=== PATIENT | female | born 1975 | race Caucasian/White ===

== ENCOUNTER 2023-02-05 13:46 | Emergency (ER) | payer MEDICARE, MEDICAID, SELFPAY ==
[2023-02-05 13:47] VITALS: BP 169/79; PULSE 90; RESP 24; TEMP 36.8; O2SAT 95
--- NOTE | 2023-02-05 13:48 | ECG_ITS ---
[facility] Test Date: 2023-02-05 Pat Name: Martha Pedroza Department: Room: Gender: Female Director Of Research: : 1975 Requested By: Star Yan Order Number: [id number] Nicolas MD: Analilia Dahl M.D. Measurements Intervals [place] Rate: 77 P: 43 AL: 151 QRS: 54 QRSD: 95 T: 11 QT: 369 QTc: 419 Interpretive Statements SINUS RHYTHM No previous ECG available for comparison Electronically Signed On 02-05-2023 17:44:38 CDT by Analilia Dahl M.D. [id number]
--- NOTE | 2023-02-05 13:48 | XR_ITS ---
WS: [id number] Exam: XR chest 1V portable [id number] Date/Time of Exam: 02/05/2023 1:48 PM Reason For Exam: dyspnea/cough No priors. Diffuse interstitial infiltrates noted in both lungs. Increased pulmonary vascularity. Cardiomediasti nal silhouette is unremarkable. Blunted RIGHT costophrenic angle may represent pleural thickening or small pleural effusion. IMPRESSION: 1. Diffuse interstitial infiltrates throughout both lungs. This could represent chronic change, inter stitial pneumonia or interstitial pulmonary edema. There is likely some pulmonary vascular engorgemen t. 2. Blunted RIGHT costophrenic angle that may represent small pleural effusion versus pleural thickeni ng.
[2023-02-05 14:15] LABS: Basophils # 0.2 10^3/uL (0.0-0.1); Basophils % 1.8 %; Eosinophils # 0.3 10^3/uL (0.0-0.8); Eosinophils % 3.8 %; Hematocrit 46.6 % (36-47); Lymphocytes # 1.2 10^3/uL (0.8-4.8); Lymphocytes % 14.8 %; Mean Corpuscular HGB Conc 32.8 g/dL (30-55); Mean Corpuscular Hemoglobin 32.6 pg (27-33); Mean Corpuscular Volume 99.4 fl (85-98); Mean Platelet Volume 10.8 fL (7.4-10.4); Monocytes # 0.6 10^3/uL (0.2-0.9); Monocytes % 7.4 %; Neutrophils # 5.79 10^3/uL (1.8-7.7); Neutrophils % 70.6 %; Nucleated Red Blood Cells % 0 %; Platelet Count 186 10^3/cmm (157-399); Red Blood Count 4.69 10^6/uL (3.85-5.65); Red Cell Distribution Width 15.4 % (12.1-15.1)
--- NOTE | 2023-02-05 14:22 | ED_ITS ---
HPI - SOB/Dyspnea General: Chief Complaint: Shortness of Breath/Dyspnea Stated Complaint: SOB Time Seen by Provider: 02/05/23 13:47 Source: patient and other (Caregiver) Mode of arrival: EMS History of Present Illness: HPI Narrative: 47-year-old female with a history of Down syndrome. She has been evaluated recently and they have been concerned she has sleep apnea results has been cyanotic at times at night because her mental handicap she has not been compliant with evaluation for sleep apnea. She was seen over the weekend another emergency room and they evaluated her and discharged her home. She was seen after primary care doctor's office today they had read her sats is abnormal and could called an ambulance for her to be brought to the emergency room. On arrival here her oxygen sats are with 100% on room air they are in the mid 90s in route with EMS. The clinic had stated they had recorded oxygen sats around 83 at the time she was seen there. No reports of chest pain. MD elicited complaint: shortness of breath and cough Onset (ago): unknown Timing: constant Severity: moderate Exacerbating factors: lying flat and other (Sleeping) Relieving factors: upright position Associated symptoms: Reports orthopnea; Deny abdominal pain, chest congestion, chest pain, cough, diaphoresis, di zziness, extremity pain, fever(s), hemoptysis, myalgias, nausea, paresthesias, polydipsia, polyuria, rash, sense of impending doom, syncope or vomiting Review of Systems General: Reports: Other (ROS via caregiver based on the best of her knowledge observing pt) Const: Denies: fever(s) or diaphoresis Card: Reports: orthopnea; Denies: chest pain or syncope Resp: Reports: dyspnea; Denies: hemoptysis or chest congestion GI: Denies: abdominal pain, nausea or vomiting : Denies: dysuria, urinary frequency or urinary urgency Musc: Denies: neck pain, back pain or extremity pain Skin/Breast: Denies: rash Neuro: Denies: dizziness Endo: Denies: polyuria or polydipsia Physical Exam Const: COMMON NORMALS: no acute distress GENERAL APPEARANCE: cooperative and comfortable NUTRITIONAL APPEARANCE: obese centrally obese ORIENTATION/CONSCIOUSNESS: Yes awake HENMT: COMMON NORMALS: normocephalic, atraumatic and hearing grossly normal bilaterally HEAD & SCALP: normocephalic and atraumatic Resp: COMMON NORMALS: normal respiratory effort, No retractions, No use of accessory muscles and clear to auscultation bilaterally AUSCULTATION: clear to auscultation bilaterally Cardio: COMMON NORMALS: regular rate, regular rhythm and No murmurs present (Cardio) RATE: regular rate RHYTHM: regular rhythm GI: COMMON NORMALS: Soft to palpation and No hepatosplenomegaly present AUSCULTATION: Yes normoactive bowel sounds PALPATION: Yes Soft to palpation, No Tenderness to palpation present (GI), No Guarding due to palpation present (GI) and Yes No hepatosplenomegaly present Extremity: COMMON NORMALS: normal to inspection, capillary refill normal, no clubbing, cyanosis or edema, no calf tenderness and no pedal edema Skin: COMMON NORMALS: no rashes or lesions noted GENERAL SKIN EXAM: no rashes or lesions noted Course Vital Signs: Vital signs: Vital Signs Temperature 98.2 F 02/05/23 13:47 Pulse Rate 90 02/05/23 13:47 Respiratory Rate 24 H 02/05/23 13:47 Blood Pressure 169/79 02/05/23 13:47 Pulse Oximetry 95 02/05/23 15:29 Oxygen Delivery Me thod Room Air 02/05/23 13:47 MDM - SOB/Dyspnea Medical Decision Making Patient has no acute findings and her oxygen sat remains normal. She does desat when she dozes off sleeping low 90s when she is in an upright position. At this point no acute findings. There is no evidence of pneumonia. We will discharge patient home we did get a chest x-ray which showed some chronic interstitial findings I think some of that is due to her body habitus. Additionally we did a home O2 eval and ambulate her her sats remain normal she did not qualify for oxygen will refer her to pulmonology for further work-up and evaluation. Medical Records I reviewed the patient's medical records. Lab Data I reviewed the patient's lab results. 02/05/23 14:08 02/05/23 14:08 Labs/Radiology: Laboratory Results WBC 8.20 10^3/uL (3.29-11.43) 02/05/23 14:08 RBC 4.69 10^6/uL (3.85-5.65) 02/05/23 14:08 Hgb 15.30 g/dL (11.27-16.99) 02/05/23 14:08 Hct 46.6 % (36-47) 02/05/23 14:08 MCV 99.4 fl (85-98) H 02/05/23 14:08 MCH 32.6 pg (27-33) 02/05/23 14:08 MCHC 32.8 g/dL (30-55) 02/05/23 14:08 RDW 15.4 % (12.1-15.1) H 02/05/23 14:08 Plt Count 186 10^3/cmm (157-399) 02/05/23 14:08 MPV 10.8 fL (7.4-10.4) H 02/05/23 14:08 Neut % (Auto) 70.6 % 02/05/23 14:08 Lymph % (Auto) 14.8 % 02/05/23 14:08 Norton % (Auto) 7.4 % 02/05/23 14:08 Eos % (Auto) 3.8 % 02/05/23 14:08 Baso % (Auto) 1.8 % 02/05/23 14:08 Neut # (Auto) 5.79 10^3/uL (1.8-7.7) 02/05/23 14:08 Lymph # (Auto) 1.2 10^3/uL (0.8-4.8) 02/05/23 14:08 Norton # (Auto) 0.6 10^3/uL (0.2-0.9) 02/05/23 14:08 Eos # (Auto) 0.3 10^3/uL (0.0-0.8) 02/05/23 14:08 Baso # (Auto) 0.2 10^3/uL (0.0-0.1) H 02/05/23 14:08 Nucleated RBC % (auto) 0 % 02/05/23 14:08 Nucleated RBCs # 0.0 /100WBC 02/05/23 14:08 Specimen Type Cancelled 02/05/23 15:28 Specimen Type Venous 02/05/23 15:28 Sample Site Cancelled 02/05/23 15:28 Sample Site Not Reportable 02/05/23 15:28 O2 Sat Pulse Oximetry Cancelled 02/05/23 15:28 Jaiden Test Cancelled 02/05/23 15:28 Jaiden Test Na 02/05/23 15:28 VBG pH 7.34 (7.32-7.42) 02/05/23 15:28 VBG pH Cancelled 02/05/23 15:28 VBG pCO2 59.9 mmHg (41-51) H 02/05/23 15:28 VBG pCO2 Cancelled 02/05/23 15:28 VBG pO2 22.1 mmHg (25-40) L 02/05/23 15:28 VBG pO2 Cancelled 02/05/23 15:28 VBG HCO3 32.4 mmol/L (24-28) H 02/05/23 15:28 VBG HCO3 Cancelled 02/05/23 15:28 VBG Base Excess 4.5 mmol/L (-3.0-3.0) H 02/05/23 15:28 VBG Base Excess Cancelled 02/05/23 15:28 VBG Hematocrit 49.1 % (37-47) H 02/05/23 15:28 VBG Hematocrit Cancelled 02/05/23 15:28 Respiration Rate Cancelled 02/05/23 15:28 O2 Delivery Device Cancelled 02/05/23 15:28 O2 Delivery Device Not Reportable 02/05/23 15:28 O2 Liters/Min Cancelled 02/05/23 15:28 SIMV Cancelled 02/05/23 15:28 Vent Mode Cancelled 02/05/23 15:28 Mechanical Rate Cancelled 02/05/23 15:28 Spontaneous Rate Cancelled 02/05/23 15:28 FiO2 Cancelled 02/05/23 15:28 Tidal Volume Cancelled 02/05/23 15:28 PEEP Cancelled 02/05/23 15:28 Pressure Support Cancelled 02/05/23 15:28 Pressure Control Cancelled 02/05/23 15:28 CPAP Cancelled 02/05/23 15:28 Mode BiPAP Cancelled 02/05/23 15:28 Specimen Drawn By Cancelled 02/05/23 15:28 Retail Greeting Card Merchandiser ID Cancelled 02/05/23 15:28 Retail Greeting Card Merchandiser ID Rc 02/05/23 15:28 Crit Value Read Back Cancelled 02/05/23 15:28 Blood Gas Notified Time Cancelled 02/05/23 15:28 Sodium 140 mmol/L (136-145) 02/05/23 14:08 Potassium 4.4 mmol/L (3.5-5.1) 02/05/23 14:08 Chloride 101 mmol/L (98-107) 02/05/23 14:08 Carbon Dioxide 31 mmol/L (22-29) H 02/05/23 14:08 Anion Gap 12.4 (5-19) 02/05/23 14:08 BUN 14 mg/dL (6-20) 02/05/23 14:08 Creatinine 0.9 mg/dL (0.5-0.9) 02/05/23 14:08 GFR Calculation 66.8 mL/min (90-130) L 02/05/23 14:08 Glucose 102 mg/dL (65-115) 02/05/23 14:08 Calculated Osmolality 291 mOsm/kg (285-295) 02/05/23 14:08 Calcium 9.1 mg/dL (8.5-10.5) 02/05/23 14:08 Total Bilirubin 0.4 mg/dL (0.15-1.2) 02/05/23 14:08 AST 12 U/L (0-32) 02/05/23 14:08 ALT 14 U/L (0-33) 02/05/23 14:08 Alkaline Phosphatase 103 U/L (35-105) 02/05/23 14:08 NT-Pro-B Natriuret Pep 118 pg/mL (0-125) 02/05/23 14:08 Total Protein 7.2 g/dL (6.6-8.7) 02/05/23 14:08 Albumin 3.8 g/dL (3.5-5.2) 02/05/23 14:08 Globulin 3.4 g/dL (1.3-4.6) 02/05/23 14:08 All radiology interpretation(s) finalized by discharge Discharge Plan Discharge Patient Disposition: Home Clinical Impression: Apnea, sleep, Obesity hypoventilation syndrome Condition: Stable Prescriptions: No Action loperamide 2 mg capsule See Rx Instructions .ROUTE .COMPLEX Rx Instructions: Take 1 capsule by mouth every 3 hours as needed for diarrhea/loose stools, Max of 8 mg per 24 hours. cetirizine 10 mg Tablet 10 mg PO DAILY clobetasol 0.05 % cream 1 applic TOPICAL BID Rx Instructions: DO NOT USE ON FACE, GROIN OR AXILLAE potassium chloride 10 mEq tablet extended release 10 meq PO QAM triamcinolone acetonide 0.1 % cream See Rx Instructions .ROUTE .COMPLEX Rx Instructions: Apply to psoriatic areas topically all over body (thin layer to the affected area) 2 times daily including intertriginous as needed for control levothyroxine 100 mcg tablet 100 mcg PO QAM alprazolam 0.25 mg tablet 0.25 mg PO BID ferrous sulfate 325 mg (65 mg iron) Tablet 325 mg PO QAM Debrox 6.5 % Drops 5 drp OTIC (EAR) Q12H sertraline 25 mg tablet 25 mg PO QAM omeprazole 20 mg capsule,delayed release(DR/EC) 20 mg PO BID gentamicin 0.1 % cream See Rx Instructions .ROUTE .COMPLEX Rx Instructions: 1 applic topically to open areas of the feet once daily. furosemide 20 mg tablet 20 mg PO QAM Nyamyc 100,000 unit/gram powder 1 applic TOPICAL BID Miralax 17 gram/dose Powder See Rx Instructions .ROUTE .COMPLEX Rx Instructions: Mix 17 g (1 capful) in 8 ounces of liquid and drink entire liquid daily at 8 am. Hold if loose stools. clotrimazole 1 % cream See Rx Instructions .ROUTE .COMPLEX PRN (Reason: Rash) Rx Instructions: 1 applic topically to abdominal folds daily as needed. Ok to mix with triamcinolone when flaring. Moisturizing Lotion (with pet) Lotion See Rx Instructions .ROUTE .COMPLEX Rx Instructions: 1 applic topically to both feet daily nitrofurantoin monohyd/m-cryst 100 mg capsule 100 cap PO BID acetaminophen 325 mg Tablet 650 mg PO Q4H PRN (Reason: Pain) Triple Antibiotic 3.5mg-400 unit- 5,000 unit/gram Ointment 1 applic TOPICAL BID PRN (Reason: open skin) Q-Tussin DM 10-100 mg/5 mL Syrup 5 ml PO Q4H PRN (Reason: cough and congestion) Discharge Orders: Discharge ED (Routine); Ordered 02/05/23 Ordered By: Star Torres Discharge Diet: Usual diet Discharge Activity: Resume usual activity Patient Instructions: Opioid Safety, Pain Management Activity Restrictions/Additional Instructions: You were seen today for questions of hypoxia. While awake your oxygen sats are normal when you does for sleep your oxygen sats do drop. Suspect she has central sleep apnea as well as obesity hypoventilation syndrome. Case management make arrangements for you to follow-up with pulmonology. Coding Level of Care Code ED Motor Vehicle Dispatcher for Marline Yu
[2023-02-05 14:30] LABS: Alanine Aminotransferase 14 U/L (0-33); Albumin Level 3.8 g/dL (3.5-5.2); Alkaline Phosphatase 103 U/L (35-105); Anion Gap 12.4 (5-19); Aspartate Amino Transferase 12 U/L (0-32); Blood Urea Nitrogen 14 mg/dL (6-20); Calcium 9.1 mg/dL (8.5-10.5); Carbon Dioxide 31 mmol/L (22-29); Chloride 101 mmol/L (98-107); Globulin 3.4 g/dL (1.3-4.6); Glomerular Filtration Rate 66.8 mL/min (90-130); Glucose 102 mg/dL (65-115); Osmolality Calculated 291 mOsm/kg (285-295); Potassium 4.4 mmol/L (3.5-5.1); Sodium 140 mmol/L (136-145); Total Bilirubin 0.4 mg/dL (0.15-1.2); Total Protein 7.2 g/dL (6.6-8.7)
[2023-02-05 14:52] LABS: NT Pro B Type Natriuretic Pept 118 pg/mL (0-125)
[2023-02-05 15:29] VITALS: O2SAT 91; O2SAT 95
[2023-02-05 15:59] LABS: Base Excess VBG 4.5 mmol/L (-3.0-3.0); Blood Gas Operator Identificat RC; HCO3 VBG 32.4 mmol/L (24-28); PCO2 VBG 59.9 mmHg (41-51); PO2 VBG 22.1 mmHg (25-40); pH VBG 7.34 (7.32-7.42)
[2023-02-05 16:02] LABS: Blood Gas Sample Type VENOUS; Venous Blood Gas Hematocrit 49.1 % (37-47)
--- NOTE | 2023-02-05 18:26 | DCPLANNER ---
Referral was sent to pulmonology on 02/05 at [phone]. Clinic to contact patient
--- NOTE | 2023-02-05 18:29 | DCPLANNER ---
Referral was sent to ortho clinic on 02/05 at [phone]. Clinic to contact patient
== END 2023-02-05 17:08 | disposition home or self-care (01) ==
PROVIDERS: Emergency Provider Family Medicine; PCP Family Medicine
DX: G47.30 Sleep apnea, unspecified (principal); E66.2 Morbid (severe) obesity with alveolar hypoventilation
CPT/HCPCS: 36415; 71045; 80053; 82803; 83880; 85025; 93005; 99285

== ENCOUNTER → 2023-03-30 09:47 | Outpatient (BNVA) | payer MEDICARE, SELFPAY | PROVIDERS: PCP Family Medicine; Referring Provider Family Medicine; Visit Provider Internal Medicine Pulmonary Disease | DX: Z09 Encounter for follow-up examination after completed treatment for conditions other than malignant neoplasm (principal); E66.2 Morbid (severe) obesity with alveolar hypoventilation; Z68.43 Body mass index [BMI] 50.0-59.9, adult | CPT/HCPCS: 99204 ==

== ENCOUNTER 2023-04-11 12:52 | Outpatient (CLI) | payer MEDICARE, SELFPAY ==
--- NOTE | 2023-04-11 13:30 | CTR_ITS ---
PROCEDURE INFORMATION: Exam: CT Chest Without Contrast; Diagnostic Exam date and time: 04/11/2023 12:58 PM Age: 47 years old Clinical indication: Shortness of breath; Prior surgery; Surgery date: 6+ months; Surgery type: Gb; Patient HX: Worsening sleep apnea with dyspnea. Limited history due to patient being non verbal; Additional info: Hrct TECHNIQUE: Imaging protocol: Diagnostic computed tomography of the chest without contrast. Radiation optimization: All CT scans at this facility use at least one of these dose optimization techniques: automated exposure control; mA and/or kV adjustment per patient size (includes targeted exams where dose is matched to clinical indication); or iterative reconstruction. REPORTING DATA: Count of CT and Cardiac NM exams in prior 12 months: This patient has received 0 known CTs and 0 known cardiac nuclear medicine studies in the 12 months prior to the current study. COMPARISON: CR XR chest 1V portable [id number] 02/05/2023 1:55 PM RADIATION DOSE METRICS: Total DLP (mGy-cm): 1110.48 FINDINGS: Lungs: Mild nonspecific ground-glass opacities throughout the lungs bilaterally. These may be related to chronic changes or hypoventilatory changes. Linear atelectasis at the right lung base. Pleural spaces: Unremarkable. No pneumothorax. No pleural effusion. Heart: Unremarkable. No cardiomegaly. No pericardial effusion. Coronary arteries: No appreciable coronary artery calcifications. Lymph nodes: Unremarkable. No enlarged lymph nodes. Vasculature: Unremarkable. No aortic aneurysm. Bones/joints: Unremarkable. No acute fracture. Soft tissues: Unremarkable. CT/CT chest [facility] [id number] IMPRESSION: Mild ground-glass opacities, nonspecific in appearance.
== END 2023-04-11 12:53 | disposition home or self-care (01) ==
LOC: RAD 12:53
PROVIDERS: PCP Family Medicine; Visit Provider Internal Medicine Pulmonary Disease
DX: J84.9 Interstitial pulmonary disease, unspecified (principal); G47.33 Obstructive sleep apnea (adult) (pediatric); R91.8 Other nonspecific abnormal finding of lung field
CPT/HCPCS: 71250

== ENCOUNTER 2023-05-02 12:38 | Outpatient (CLI) | payer MEDICARE, MEDICAID, SELFPAY ==
--- NOTE | 2023-05-02 12:59 | USCV_ITS ---
Martha Pedroza Age: 47 Gender: F : 1975 Exam Date: 05/02/2023 13:24 Ordering Phys: Amari Johnson MD Technologist: CT Exam Location: [facility] [place] Indication: sob BP: 112 / 69 HR: 87 Rhythm: Sinus Technical Quality: Poor because of body habitus MEASUREMENTS (Male / Female) Normal Values 2D ECHO LVOT Diameter 2.0 cm LV Ejection Fraction MOD 2C 52.2 % LV Ejection Fraction 2C AL 51.6 % LA Diameter 3.0 cm Aorta at Sinotubular Diameter 2.0 cm M-MODE Aortic Annulus Diameter 2.2 cm LA Ao Ratio MM 1.6 MV E Point Septal Separation 0.6 cm DOPPLER AV Peak Velocity 181.0 cm/s LVOT Peak Velocity 125.0 cm/s AV Area Cont Eq vti 2.3 cm squared AV Area Cont Eq pk 2.2 cm squared MV E' Velocity 11.0 cm/s TR Peak Velocity 114.0 cm/s TR Peak Gradient 5.2 mmHg TV Peak E Velocity 63.0 cm/s Right Atrial Pressure 3.0 mmHg Pulmonary Artery Systolic Pressu 8.2 mmHg PV Peak Velocity 160.0 cm/s FINDINGS Left Ventricle Left ventricle is normal in size. LV systolic function is normal with EF 55 to 60%. No regional wall motion abnormalities are seen. Right Ventricle Normal in size and function Right Atrium Grossly normal Left Atrium Grossly normal Mitral Valve Structurally normal mitral valve. Aortic Valve Structurally normal aortic valve. No significant stenosis or regurgitation Tricuspid Valve Mild tricuspid regurgitation. Insufficient TR jet to calculate RVSP Pulmonic Valve Not well visualized Pericardium Normal Aorta Normal in size IVC Not well visualized CONCLUSIONS Technically limited quality echocardiogram because of poor ultrasonic windows. LV systolic function is normal with EF of 55 to 60%. Mild tricuspid regurgitation No comparison studies are available. Erasmo Cleveland MD (Electronically Signed) Final Date: 18 May 2023 15:10 S
== END 2023-05-02 12:39 | disposition home or self-care (01) ==
PROVIDERS: PCP Family Medicine; Visit Provider Internal Medicine Pulmonary Disease
DX: I07.1 Rheumatic tricuspid insufficiency (principal)
CPT/HCPCS: 93306

== ENCOUNTER → 2023-05-31 10:42 | Outpatient (BNVA) | payer MEDICARE, MEDICAID, SELFPAY | PROVIDERS: PCP Family Medicine; Visit Provider Internal Medicine Pulmonary Disease | DX: E66.2 Morbid (severe) obesity with alveolar hypoventilation (principal); R06.2 Wheezing; Q90.9 Down syndrome, unspecified; Z68.43 Body mass index [BMI] 50.0-59.9, adult | CPT/HCPCS: 99214 ==

== ENCOUNTER 2023-06-04 10:02 | Outpatient (CLI) | payer MEDICARE, MEDICAID, SELFPAY ==
[2023-06-06 17:29] LABS: Cat Dander (E1) Ige <0.10 kU/L; Cat Dander Class 0; Dog Dander (E5) Ige <0.10 kU/L; Dog Dander Class 0
[2023-06-06 17:38] LABS: Alternaria Alternata (M6) Ige <0.10 kU/L; Alternaria Class 0; Bermuda Class 0; Bermuda Grass (G2) Ige <0.10 kU/L; Common Ragweed (Short) (W1) Ig <0.10 kU/L; D. Farinae Class 0; Dermatophagoides Class 0; Dermatophagoides Farinae (D2) <0.10 kU/L; Dermatophagoides Pteronyssinus <0.10 kU/L; Elm (T8) Ige <0.10 kU/L; Elm Class 0; English Plantain (W9) Ige <0.10 kU/L; English Plantain Class 0; House Dust (Greer) (H1) Ige <0.10 kU/L; House Dust (Hollister- Stier) <0.10 kU/L; House Dust Class 0; Immunoglobulin E 23 kU/L (<OR=114); Johnson Grass (G10) Ige <0.10 kU/L; Johnson Grass Cl 0; June Grass Class 0; June Grass(Kentucky Blue) (G8) <0.10 kU/L; Lamb'S Quarters (Goose Foot) <0.10 kU/L; Lamb'S Quarters Class 0; Maple (Box Elder) (T1) Ige <0.10 kU/L; Maple Class 0; Meadow Fescue (G4) Ige <0.10 kU/L; Meadow Fescue Class 0; Mucor Racemosus Class 0; Oak (T7) Ige <0.10 kU/L; Oak Class 0; Orchard Grass (Cocksfoot) (G3) <0.10 kU/L; Penicillium Class 0; Penicillium Notatum (M1) Ige <0.10 kU/L; Perennial Rye Grass (G5) Ige <0.10 kU/L; Perennial Rye Grass Class 0; Ragweeed Class 0; Rough Marsh Elder (W16) Ige <0.10 kU/L; Rough Marsh Elder Class 0; Sweet Vernal Class 0; Sweet Vernal Grass (G1) Ige <0.10 kU/L; Timothy Grass (G6) Ige <0.10 kU/L; Timothy Grass Class 0
[2023-06-07 19:56] LABS: Aspergillus Fumigatus, Igg Ab, 11.7 mg/L (<=102)
== END 2023-06-04 10:03 | disposition home or self-care (01) ==
LOC: LAB 10:03
PROVIDERS: PCP Family Medicine; Visit Provider Internal Medicine Pulmonary Disease
DX: J45.909 Unspecified asthma, uncomplicated (principal)
CPT/HCPCS: 36415; 82785; 86003